=== PATIENT | female | born 1940 | race Caucasian/White ===

== ENCOUNTER 2018-11-01 11:42 | Outpatient (CLI) | payer MEDICARE, BC ==
[~2018-11-01] VITALS: Ht 162.6 cm; Wt 65.9 kg
[2018-11-01] MEDS ORDERED: ZOLEDRONIC ACID 5 MG in APPROPRIATE DILUENT 1 EA IV ONE (12:30)
[2018-11-01] MEDS ORDERED: ACIFEX PO (12:34)
[2018-11-01] MEDS ORDERED: CALC-190 PO (12:39)
[2018-11-01] MEDS ORDERED: MULTCAP PO (12:39)
[2018-11-01] MEDS ORDERED: TIRO25CA3 PO (12:39)
[2018-11-01] MEDS ORDERED: ZYRTTAB8 PO (12:39)
[2018-11-01] MEDS ORDERED: PROP20TA72 PO (12:39)
[2018-11-01] MEDS ORDERED: LIOT5TAB PO (12:39)
[2018-11-01] MEDS ORDERED: TURM1POW XX (12:39)
[2018-11-01 12:50] VITALS: BP 160/84
[2018-11-01 13:15] VITALS: BP 165/78
[2018-11-01 13:35] VITALS: BP 171/81
== END 2018-11-01 13:35 | disposition home or self-care (01) ==
LOC: M INFU 11:42
PROVIDERS: ATTEND Internal Medicine Endocrinology, Diabetes & Metabolism
DX: S32.82XD Multiple fractures of pelvis without disruption of pelvic ring, subsequent encounter for fracture with routine healing (principal); Z88.0 Allergy status to penicillin; Z88.1 Allergy status to other antibiotic agents; Z88.2 Allergy status to sulfonamides; Z88.5 Allergy status to narcotic agent; Z88.8 Allergy status to other drugs, medicaments and biological substances
CPT/HCPCS: 96365; J3489

== ENCOUNTER 2019-11-10 13:38 | Outpatient (CLI) | payer MEDICARE, BC ==
[~2019-11-10] VITALS: Ht 162.6 cm; Wt 63.0 kg
[~2019-11-10 13:38] MED LIST: ACIFEX PO; CALC-190 PO; LIOT5TAB6 PO; MULTCAP PO; PROP20TA72 PO; TIRO25CA3 PO; TURM1POW XX; ZYRTTAB8 PO
[2019-11-10 14:00] VITALS: BP 173/72
[2019-11-10] MEDS ORDERED: ZOLEDRONIC ACID 5 MG in IV 1 EA IV ONE (14:00)
[2019-11-10 15:00] VITALS: BP 157/67
[2019-11-10] MEDS ORDERED: SPIR-10 PO (15:43)
[2019-11-10] MEDS ORDERED: RECL5INJ2 IV (15:43)
== END 2019-11-10 15:00 | disposition home or self-care (01) ==
LOC: M INFU 13:38
PROVIDERS: ATTEND Internal Medicine Endocrinology, Diabetes & Metabolism
DX: M81.0 Age-related osteoporosis without current pathological fracture (principal); Z88.0 Allergy status to penicillin; Z88.2 Allergy status to sulfonamides; Z88.5 Allergy status to narcotic agent; Z88.8 Allergy status to other drugs, medicaments and biological substances
CPT/HCPCS: 96365; J3489

== ENCOUNTER 2020-09-03 14:16 | Outpatient (CLI) | payer MEDICARE, BC ==
[~2020-09-03] VITALS: Ht 162.6 cm; Wt 63.0 kg
[~2020-09-03 14:16] MED LIST changes: +RECL5INJ2 IV; +SPIR-10 PO
[2020-09-03] MEDS ORDERED: ZOLEDRONIC ACID 5 MG in IV 1 EA IV ONE (14:30)
[2020-09-03 14:51] VITALS: BP 142/71
[2020-09-03 15:25] VITALS: BP 134/67
== END 2020-09-03 15:25 | disposition home or self-care (01) ==
LOC: M INFU 14:16
PROVIDERS: ATTEND Internal Medicine Endocrinology, Diabetes & Metabolism
DX: M81.0 Age-related osteoporosis without current pathological fracture (principal); Z88.0 Allergy status to penicillin; Z88.1 Allergy status to other antibiotic agents; Z88.6 Allergy status to analgesic agent; Z88.2 Allergy status to sulfonamides; Z88.5 Allergy status to narcotic agent; Z88.8 Allergy status to other drugs, medicaments and biological substances
CPT/HCPCS: 96365; J3489

== ENCOUNTER 2022-09-26 13:31 | Outpatient (CLI) | payer MEDICARE, BC ==
[~2022-09-26] VITALS: Ht 162.6 cm; Wt 63.0 kg
[2022-09-26 13:55] VITALS: BP 160/76
[2022-09-26] MEDS ORDERED: ZOLEDRONIC ACID 5 MG in IV 1 EA IV ONE (14:00)
[2022-09-26 14:25] VITALS: BP 143/78
== END 2022-09-26 14:25 | disposition home or self-care (01) ==
LOC: M INFU 13:31
PROVIDERS: ATTEND Internal Medicine Endocrinology, Diabetes & Metabolism
DX: S32.82XD Multiple fractures of pelvis without disruption of pelvic ring, subsequent encounter for fracture with routine healing (principal); Z88.0 Allergy status to penicillin; Z88.1 Allergy status to other antibiotic agents; Z88.2 Allergy status to sulfonamides; Z88.5 Allergy status to narcotic agent; Z88.6 Allergy status to analgesic agent
CPT/HCPCS: 96365; J3489